=== PATIENT | male | born 1995 | race Hispanic/Latino ===

== ENCOUNTER 2017-09-03 00:21 | Emergency (ER) | payer OTHER ==
[2017-09-03] MEDS ORDERED: KETOROLAC TROMETHAMINE 30MG/ML ONE (00:44)
[2017-09-03] MEDS ORDERED: IOPAMIDOL-370 100 ML VIAL IV ONE (01:16)
== END 2017-09-03 03:36 | disposition home or self-care (01) ==
LOC: EDH 00:21
DX: S13.4XXA Sprain of ligaments of cervical spine, initial encounter (principal); S30.1XXA Contusion of abdominal wall, initial encounter; S20.211A Contusion of right front wall of thorax, initial encounter; S00.81XA Abrasion of other part of head, initial encounter; S80.212A Abrasion, left knee, initial encounter; Z72.0 Tobacco use; V89.2XXA Person injured in unspecified motor-vehicle accident, traffic, initial encounter; Y93.89 Activity, other specified; Y92.89 Other specified places as the place of occurrence of the external cause; Y99.8 Other external cause status
CPT/HCPCS: 70450; 71260; 72040; 73562; 74177; 96374; 99285; J1885; Q9967